=== PATIENT | male | born 2000 | race Two or more races ===

== ENCOUNTER 2019-11-04 14:58 | Emergency (ER) | payer SELFPAY ==
[2019-11-04] MEDS ORDERED: Bicillin LA 1.2 MILLION UNITS/2 ML SYRINGE ONE (17:03)
== END 2019-11-04 17:29 | disposition home or self-care (01) ==
LOC: ERS 14:58
DX: J02.0 Streptococcal pharyngitis (principal)
CPT/HCPCS: 87430; 87804; 96372; 99283; J0561

== ENCOUNTER 2022-01-18 05:30 | Emergency (ER) | payer SELFPAY | END 2022-01-18 06:04 | disposition home or self-care (01) | LOC: ERS 05:30 | DX: J30.81 Allergic rhinitis due to animal (cat) (dog) hair and dander (principal); I10 Essential (primary) hypertension | CPT/HCPCS: 99283 ==

== ENCOUNTER 2022-03-27 05:12 | Emergency (ER) | payer SELFPAY | END 2022-03-27 05:59 | disposition home or self-care (01) | LOC: ERS 05:12 | DX: J06.9 Acute upper respiratory infection, unspecified (principal); I10 Essential (primary) hypertension; F17.220 Nicotine dependence, chewing tobacco, uncomplicated | CPT/HCPCS: 99283 ==

== ENCOUNTER 2024-11-23 16:02 | Emergency (ER) | payer SELFPAY | END 2024-11-23 16:46 | disposition home or self-care (01) | LOC: ERS 16:02 | DX: R10.9 Unspecified abdominal pain (principal); I10 Essential (primary) hypertension; F17.220 Nicotine dependence, chewing tobacco, uncomplicated | CPT/HCPCS: 99283 ==